=== PATIENT | female | born 1980 | race Caucasian/White ===

== ENCOUNTER 2021-02-24 09:48 | Emergency (ER) | payer OTHER ==
[~2021-02-24] VITALS: Ht 160 cm; Wt 122.5 kg
[2021-02-24] MEDS ORDERED: LEXAPRO20 MG PO (10:19)
[2021-02-24] MEDS ORDERED: LEVOTHYROXINE175 MC1 PO (10:19)
[2021-02-24] MEDS ORDERED: CLONAZEPAM 0.50.5 M1 PO (10:19)
[2021-02-24] MEDS ORDERED: ADDERALL 20 MG20 MG PO (10:19)
[2021-02-24 10:50] LABS: URINE BILIRUBIN NEGATIVE (Negative); URINE BLOOD NEGATIVE (Negative); URINE CLARITY CLEAR; URINE COLOR YELLOW; URINE GLUCOSE-RANDOM NEGATIVE (Negative); URINE KETONES TRACE (Negative); URINE LEUKOCYTES-REFLEX NEGATIVE (Negative); URINE NITRITE-REFLEX NEGATIVE (Negative); URINE PROTEIN NEGATIVE (Negative); URINE UROBILINOGEN 0.2 E.U./dl (0.2-1.0)
[2021-02-24 11:18] LABS: ABSOLUTE BASOPHILS 0.1 thou/uL (0.0-0.2); ABSOLUTE EOSINOPHILS 0.3 thou/uL (0.0-0.7); ABSOLUTE LYMPHOCYTES 1.1 thou/uL (0.8-5.3); ABSOLUTE MONOCYTES 0.4 thou/uL (0.0-1.2); ABSOLUTE NEUTROPHILS 4.5 thou/uL (1.6-8.1); HEMOGLOBIN 14.4 gm/dL (12.0-15.0); LYMPHOCYTES 17.6 %; MCH 28.8 pg (26.0-34.0); MCHC 34.4 g/dL (28.0-37.0); MCV 83.9 fL (80.0-100.0); MONOCYTES 6.8 %; MPV 7.8 fl. (7.2-11.1); NUCLEATED RBCS 0 /100WBC; PLATELET COUNT* 352 thou/uL (150-400); POLYS 70.6 %; RBC 5.01 mil/uL (4.20-5.00); RDW-CV 13.4 % (10.5-14.5); WBC 6.3 thou/uL (4.0-11.0)
[2021-02-24 11:28] LABS: CALCIUM 8.9 mg/dL (8.5-10.1); CREATININE 0.8 mg/dL (0.6-1.3); POTASSIUM 4.1 mmol/L (3.5-5.1)
[2021-02-24 11:31] LABS: ALBUMIN 3.9 g/dL (3.4-5.0)
[2021-02-24 11:47] LABS: TOTAL BILIRUBIN 0.3 mg/dL (<0.1-1.0); TOTAL PROTEIN 7.9 g/dL (6.4-8.2)
[2021-02-24] MEDS ORDERED: ONDANSETRON HCL4 M2 PO ×2 (13:22→13:23)
[2021-02-24] MEDS ORDERED: CIPRO500 M1 PO ×2 (13:22→13:23)
[2021-02-24] MEDS ORDERED: FLAGYL500 M1 PO ×2 (13:22→13:23)
[2021-02-24] MEDS ORDERED: NORCO5 PO (13:22)
[2021-02-24] MEDS ORDERED: HYDROCODON-ACE1 EAC7 PO (13:27)
[2021-02-24 13:43] VITALS: BP 133/81
== END 2021-02-24 13:45 | disposition home or self-care (01) ==
LOC: M.ERS 09:48
PROVIDERS: Family Medicine; Physician Assistant
DX: K52.9 Noninfective gastroenteritis and colitis, unspecified (principal); Z90.49 Acquired absence of other specified parts of digestive tract